=== PATIENT | male | born 1980 | race Caucasian/White ===

== ENCOUNTER 2020-05-22 18:25 | Emergency (ER) | payer BC, SELFPAY ==
[2020-05-22 18:27] VITALS: BP 162/101; PULSE 74; RESP 18; TEMP 36.1; O2SAT 99; BMI 36.1
--- NOTE | 2020-05-22 18:43 | RAD_ITS ---
STUDY: X-RAY - LEFT HAND REASON FOR EXAM: Male, 39 years old. PAIN TO 5TH METACARPAL S/P INJURY x1 WEEK AGO, SWELLING TECHNIQUE: 3 view(s) of the hand. COMPARISON: None. FINDINGS: Normal radiocarpal articulation. Normal distal radioulnar joint. Normal visualized carpal bones. Normal carpal articulations Normal carpometacarpal articulation of the thumb. Normal second through fifth carpometacarpal joints. Acute volarly angulated transverse fracture the midshaft of the fifth metacarpal bone. Normal metacarpophalangeal joint of the thumb. Normal interphalangeal joint of the thumb. Normal proximal and distal phalanges of the thumb. Normal metacarpophalangeal joints of the second through fifth fingers. Normal proximal and distal interphalangeal joints of the second through fifth fingers. Normal phalanges of the second through fifth fingers. The soft tissue structures are unremarkable. RAD/Hand Min 3 Views IMPRESSION: Acute volarly angulated transverse fracture the midshaft of the fifth metacarpal bone. Electronically Signed: Doug Barrow MD at 19:10 EST Tel , Service support ,
--- NOTE | 2020-05-22 18:45 | ED.VIS.UPPEX ---
History of Present Illness Chief Complaint: Upper Extremity Injury Informant: Patient Occurred: Days Narrative: Patient is a 39-year-old male with no significant past medical history presenting with left hand injury. He is right-hand dominant. Patient punched the bed of his truck a week ago. Since then he had pain in the lateral aspect of his left hand with associated swelling. Today while he was at work he was trying to wrestle with steer and fell onto his left hand. Since then the pain has been significantly worse. Patient is intermittently taken ibuprofen for the pain. States it is worse when he tries to supinate his hand or if he applies direct pressure to the lateral aspect of his hand. No associated numbness or tingling. No other complaints at this time. Past Medical History - Allergies and Home Meds Allergies/Adverse Reactions: Allergies Penicillins Allergy (Verified 05/22/20 18:26) Cyndee Primary Care Physician: Wendie Corea DO [STAFF PHYSICIAN] - Past Medical History: None Surgical History: noncontributory Review of Systems General: Denies: Chills, Fever, Sweats Eyes: Denies: Visual changes - bilaterally, Diplopia ENT: Denies: Rhinorrhea, Sore throat Cardiovascular: Denies: Chest pain, Palpitations Respiratory: Denies: Dyspnea, Cough, Dyspnea on exertion Gastrointestinal: Denies: Abdominal pain, Nausea, Vomiting, Diarrhea, Melena, Hematochezia Genitourinary: Denies: Dysuria, Hematuria, Frequency Musculoskeletal: Reports: Swelling, Extremity Pain - Left hand. Denies: Back pain Skin: Denies: Rash, Wounds Neurological: Denies: Headache, Weakness, Numbness Physical Exam Vital Signs/Narrative: Vital Signs Temp Pulse Resp BP Pulse Ox 05/22/20 18:27 97 F L 74 18 162/101 H 99 Inital Vital Signs reviewed: Yes Left Forearm: Negative for: Contusion, Deformity, Edema, Hematoma, Limited ROM Left Wrist: Negative for: Contusion, Deformity, Edema, Hematoma, Limited ROM Left Hand: Contusion, Edema, Limited ROM, - - She has palpation over the fourth and fifth metacarpals. Negative for: Deformity Left Finger: Limited ROM - Decreased ability to fully make a fist with the fourth and fifth fingers, - - No rotational deformity noted.. Negative for: Contusion, Deformity, Edema, Hematoma General: Well nourished, Well developed Head: Normocephalic, Atraumatic Eyes: EOMI ENT: No Trauma, Moist Mucous Membranes Neck: Full ROM Cardiovascular: Regular rate, Regular rhythm, - - 2+ bilateral radial pulses, brisk capillary refill Respiratory: No distress Back: Nontender Skin: Normal color, No rash, Trauma - Ecchymosis over the dorsal aspect of the left lateral hand Neurological: Alert, Oriented x3, Cranial nerves II-XII grossly intact, Normal Strength, Normal Sensation Psychological: Normal affect Diagnostic/Tx/Re-eval Clinical Impression(s) from Imaging Studies Hand X-Ray 05/22/20 18:43 IMPRESSION: Acute volarly angulated transverse fracture the midshaft of the fifth metacarpal bone. Electronically Signed: Doug Barrow MD at 19:10 EST Tel , Service support , - Medical Decision Making Patient evaluated for persistent pain and swelling of his left hand. He struck the bed of his truck a week ago which initially caused the injury. He fell on it today and reinjured it. X-ray shows zahira's fracture of the fifth metacarpal as interpreted by myself and radiologist. Patient placed in an ulnar gutter splint applied by myself and will be discharged home to follow-up with orthopedics. He declined analgesic in the emergency room. Patient is counseled on signs and symptoms requiring return to the emergency room. Patient verbalizes agreement and understand this plan. Patient discharged home in stable and improved condition. Procedures - Upper Extremity Splints Upper Extremity Splint: Orthoglass, Ulnar gutter Splint Fabrication: Fabricated Location: Left ED Disposition - Plan for ED Patient: Disposition: Home or Assisted Living Diagnosis: Fracture of fifth metacarpal bone of left hand Instructions: ED Boxer Fracture Referrals: Wendie Corea DO [STAFF PHYSICIAN] -
== END 2020-05-22 19:34 | disposition home or self-care (01) ==
LOC: ED 19:28
PROVIDERS: Emergency Provider Emergency Medicine
DX: S62.327A Displaced fracture of shaft of fifth metacarpal bone, left hand, initial encounter for closed fracture (principal); W22.09XA Striking against other stationary object, initial encounter; Y93.89 Activity, other specified; Y92.89 Other specified places as the place of occurrence of the external cause; Y99.8 Other external cause status
CPT/HCPCS: 29125; 73130; 99282

== ENCOUNTER 2020-05-26 10:41 | Day surgery (SDC) | payer BC, SELFPAY ==
[2020-05-25 08:33] VITALS: BMI 33.0
--- NOTE | 2020-05-26 08:34 | HP_ITS ---
I have re-examined the patient. There are no clinical changes since date of exam. Intake Vital Signs 05/25/20 Height 5 ft 10 in 05/25/20 Weight: 230 lb 05/25/20 BMI 33.0 Intake Visit Reasons: LT Hand Accompanied by: Self Is patient in pain?: Yes Pain scale (1-10): 3 Allergies Penicillins Allergy (Verified 05/25/20 12:14) Hives Medications NK 05/22/20 [History Confirmed 05/25/20] PFSH Medical History (Updated 05/25/20 @ 08:34 by Yaneli Davis) H/O TB (tuberculosis) (Acute) h/o spinal menigitis (Acute) Surgical History (Updated 05/25/20 @ 08:33 by Yaneli Davis) No history of previous surgery (Acute) Family History (Updated 05/25/20 @ 08:34 by Yaneli Davis) Grandmother Diabetes Hypertension Mother Hypertension Father Hypertension Social History (Updated 05/25/20 @ 12:[address] Wendie Corea, ) household members: significant other, children housing: house Smoking Status: Never smoker alcohol intake: current alcohol intake frequency: holidays/special occasions only what type of physical activity do you participate in: running frequency: 3-4 times per week do you feel safe at home: Yes HPI LT Hand: Surgical H&P: Yes Details: Parts of this documentation were recorded by a scribe, this documentation accurately reflects the service provided and the decisions made by me, Dr. Wendie Corea, 05/25/20 0810. ELLEN CORONA is a 39 year old M here today to establish as a new patient for an ER f/u. Patient states he punched his truck bed. DOI: 05/15/2020. Patient states he felt immediate pain right after. Patient states he fell on his hand one week afterwards when getting his daughter's steer under control and felt immediate pain. DOI of second incident: 05/22/20. Denies previous surgeries, injuries, and physical therapy. Denies taking anything OTC for pain relief. ROS Musc Reports system reviewed and no additional complaints, except as docu, Reports joint pain, Reports joint swelling, Reports numbness, Reports stiffness, Reports tingling Skin/Breast Reports system reviewed and no additional complaints, except as docu, Denies dry skin, Denies redness, Denies lesions, Denies new lesions, Denies non-healing lesions, Denies itching, Denies rash, Denies skin ulcer, Denies sores, Reports unusual bruising, Denies wounds Neuro Yes numbness, Yes tingling Assessment & Plan Problems 1. Fracture of fifth metacarpal bone of left hand S62.307A Plan Personally reviewed patients x-rays of the left hand. Patient educated that he has an acute volarly angulated transverse fracture the midshaft of the fifth metacarpal bone. Patient educated that his treatment options are to be casted today with some molding over the fx site in the office or casting with molding in the OR or he can have this surgically repaired with pins or surgically repaired with a plate. With the casting he will be in an ulnar gutter cast and he will be in this cast for 6 weeks. With the surgery he will be in a splint for 2 weeks then will be able to start ROM. Reviewed the pre-operative plans with the patient. Risks and benefits of the procedure were fully explained, including but not limited to infection, neurovascular injury, continued pain, arthritis, stiffness, need for further surgery, re-injury, DVT, PE, general risks of anesthesia, and loss of limb or life. 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 Follow up 2 weeks post op or sooner if pain, swelling, numbness or associated symptoms, or concerns develop. All questions answered. Patient in agreement of plan. Coding Level of Care Code Off vis,new,level 3 Diagnoses Fracture of fifth metacarpal bone of left hand S62.307A ??Encounter type: initial encounter ??Fracture alignment: displaced ??Fracture type: closed
[2020-05-26 11:09] VITALS: BP 151/93; PULSE 58; RESP 16; TEMP 36.4; O2SAT 99; BMI 35.8
[2020-05-26] MEDS: Lactated Ringers 1,000 ML 100 ML IV ×2 (11:17→13:11)
--- NOTE | 2020-05-26 12:35 | RAD_ITS ---
HISTORY: ORIF 5TH METACARPAL Technique: Intraoperative spot fluoroscopic views of the left hand. 7 images in total. Comparison: X-rays of the left hand are from May 22, 2020 Findings: The left fifth mid diaphysis metacarpal fracture has been improved in alignment with plate and screws. Osseous mineralization, joint spaces, and alignment otherwise appear preserved as imaged. No focal abnormality or radiopaque foreign body is seen in the surrounding soft tissues. RAD/Hand Min 3 Views IMPRESSION: Internal fixation of fifth metacarpal fracture at 0039 Reported and signed by: Ottoniel Farfan MD Electronically Signed: Ottoniel Farfan MD at 0:37 EST Tel , Service support ,
[2020-05-26] MEDS: Cefazolin 2 GM in 0.9% Normal Saline 100 ML IV (13:50)
--- NOTE | 2020-05-26 15:21 | PCM.DC.ORTHO ---
Discharge Diet: No Restrictions - leave dressing/splint intact, do no use left hand/wrist to lift, rom fingers as tolerated, call with concerns, follow up in 2 weeks Discharge Activity: May Not Drive May shower in (days): 1 Ice area for (Minutes): 20 - Every hour while awake. Weight Bearing Status: Weight bearing as tolerated Keep extremity elevated above heart level: Operative Extremity Call your doctor if your incision/area has: Continuous Slow Oozing, Sudden Increased Bleeding, Increased Pain/ Swelling, Increased Redness, Foul Smelling Discharge Call your doctor if you observe: Fever of 101 or Higher, Coldness, Increased Pain, Numbness or Tingling, Change in Color, Calf discomfort Allergies/Adverse Reactions: Allergies Penicillins Allergy (Verified 05/25/20 12:14) Hives Medications to take at Discharge Oxycodone HCl/Acetaminophen [Percocet 5/325] 1 - 2 tab PO Q6H PRN PRN 5 Days #28 tab 05/26/20 The following prescriptions were given: Oxycodone HCl/Acetaminophen [Percocet 5/325] 1 - 2 tab PO Q6H PRN PRN 5 Days #28 tab PRN Reason: Pain Transmission Status: Sent to [facility] Primary Care Physician: Care Physician,No Primary [Primary Care Provider] - Test Results: Test results from this visit will be discussed in further detail at your follow-up appointment, if applicable. Please Follow Up With: Wendie Corea, - [phone]
--- NOTE | 2020-05-26 15:22 | PCM.OPRPT ---
Report of Operation Date of Procedure: 05/26/20 Pre-Operative Diagnosis: left fifht metacarpal fracture -displaced and angulated Post-Operative Diagnosis: same Surgery/Procedure Performed:: orif left fifth metacarpal day habilitation supervisor: Emmanuel Ivan Type of Anesthesia:: General Anesthesiologist: Norman Salgado Fluids Replaced: 500cc lr Description of Procedure: Preoperative note Patient is a 39-year-old male who sustained a injury to his left fifth metacarpal and punched a metal object. Patient was seen in the emergency room and splinted seen in our office yesterday. Discussed options for treatment and ulnar gutter cast with a attempted reduction either in the office or in the operating room pins versus open reduction internal fixation with plate. 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 Risk-benefit and alternative surgery discussed with patient risk include but not limited to blood loss, blood clot, infection, neurovascular, failure procedure, loss of life left limb. Patient is aware like proceed with ORIF left fifth metacarpal. Operative note Patient seen examined preop holding area. Left knee was marked. Patient brought the operating placed supine on the operative table. Signed, anesthesia, antibiotics were administered. Left hand was prepped and draped usual sterile technique with a tourniquet on his upper arm. All bony promises well-padded SCDs placed on his left bilateral lower extremity. We then used fluoroscopy to ascertain the level of the fracture site. We made incision at the interspace between the fifth and fourth metacarpals. Timeout is performed. Then elevate exsanguinated and tourniquet was raised her pressure of 250 torr. Use a 15 blade to cut through the skin again in the fifth and fourth interspace. Dissected down tenotomies to level of the fracture site. We did dissect and move the extensor tendons out of the way and repair and we did protect all neurovascular lectures at all times. We then elevated the periosteum and found the displaced fracture we irrigated and use a bone pick to curette curette any of the loose pieces out. We then properly placed our 5 hole plate off the back table. Placed over the fracture site placed the 2 distal cortical screws first and then had placed initially 2 cortical screws but however did not like the rotational profile we did remove those and placed 2 locking screws distally in the note and also the lag screw at the fracture site. We had good reduction anatomic reduction and cascade was intact at that point. We irrigated the incision with copious amounts of sterile saline. Tourniquet was deflated. Incision was closed with interrupted 3-0 Vicryl we did close that over the periosteum over the plate and then the skin was closed with a 3-0 Vicryl in a running 4 Monocryl. Sterile dressings and a ulnar gutter splint was applied to the left upper extremity. Tourniquet was deflated. Patient tolerated procedure well no complications transferred recovery room in stable condition Synthes 2 oh DCP plate 9 1010 mm cortical screws 9 and 9mm locking screws Postoperative note Nonweightbearing light left upper extremity Pharmacy has prescription Call with increased pain numbness tingling further issues arise Dragon disclaimer Follow-up in 2 weeks Dragon disclaimer This note was generated with ActivePath dictation software. It may contain incorrect words, spelling, and punctuation that were not noted in checking the note before signing.
[2020-05-26] MEDS: Mupirocin Ointment 22gm Tube 1 APPLIC (15:33)
[2020-05-26 15:46] VITALS: BP 151/93; BP 155/91; PULSE 70; RESP 16; TEMP 36.6; O2SAT 95
[2020-05-26 16:00] VITALS: BP 148/95; BP 151/93; PULSE 64; RESP 16; O2SAT 97
[2020-05-26 16:15] VITALS: BP 145/101; BP 151/93; PULSE 71; RESP 16; O2SAT 96
[2020-05-26 16:20] VITALS: BP 145/97; BP 151/93; PULSE 68; RESP 16; TEMP 36.6; O2SAT 98
[2020-05-26] MEDS: Ondansetron 4 MG/2 ML Vial IV (16:50)
[2020-05-26] MEDS: HYDROcodone Bitartrate/Apap 5/325 Tablet PO (16:50)
--- NOTE | 2020-05-26 17:20 | SUR.PHASEII ---
MEDICATED WITH 2 NORCO AT 1655 FOR 5-6/10 LEFT WRIST PAIN OVER THE ULNAR STYLOID PROCESS. PATIENT REPORTS PAIN NOT IMPROVED, WORSE, IN FACT, NOT TOLERABLE. NOTIFIED MARY ALVARENGA, COMPOUND MIXER FOR DR ALCANTARA; JUSTIN INSTRUCTED TO REMOVE FIBERGLASS SPLINT AND EVAL, PAD THE STYLOID PROCESS AND REAPPLY SPLINT. PATIENT REPORTS IMMEDIATE IMPROVEMENT AFTER SPLINT REMOVED. PADDED AREA AND ATTEMPTED TO REAPPLY SPLINT BUT PATIENT COULD NOT TOLERATE THE PRESSURE, DID NOT WANT SPLINT REAPPLIED D/T INCREASED PAIN. THEN STATED, FINE, PUT IT ON, I'LL JUST TAKE IT OFF WHEN I GET HOME. EDUCATED RE: THE NEED FOR SUPPORT OVER SURGICAL SITE, RISK OF REINJURY AND INCREASED PAIN, SWELLING. SIGNIFICANT OTHER, MADISYN, AT BEDSIDE AND AWARE. NOTIFIED JUSTIN RODRIGUEZ THAT PATIENT REFUSED TO HAVE RN SPLINT REAPPLIED, STATING HIS INTENTION NOT TO COMPLY WITH PRESCRIBED THERAPY; JUSTIN ADVISED TO LEAVE SPLINT OFF, PAD AND REWRAP SITE, INSTRUCT PATIENT TO PROTECT AREA CAREFULLY AND CALL THE OFFICE TOMORROW MORNING FOR APPOINTMENT TO REVISE SPLINTING. PATIENT AND S.O. VERBALIZE UNDERSTANDING AND ARE AGREEABLE. PATIENT DBP IN LOW 100'S, STILL PAINFUL, DBP WAS IN 90'S ON ARRIVAL, DR BYRD AWARE AND STATES TO CONTINUE WITH PLAN OF CARE.
[2020-05-26 18:20] VITALS: BP 139/105; BP 151/93; PULSE 75; RESP 16; TEMP 36.2; O2SAT 100
== END 2020-05-26 18:28 | disposition home or self-care (01) ==
LOC: SDC 10:44 → AC 10:45
PROVIDERS: Visit Provider Orthopaedic Surgery
PROC: (CPT 26615; principal; 2020-05-26 12:20)
DX: S62.307A Unspecified fracture of fifth metacarpal bone, left hand, initial encounter for closed fracture (principal); Z20.822 Contact with and (suspected) exposure to COVID-19; W22.09XA Striking against other stationary object, initial encounter; Y93.89 Activity, other specified; Y92.89 Other specified places as the place of occurrence of the external cause; Y99.8 Other external cause status
CPT/HCPCS: 26615; 73130; 76000; 87426; C1713; C9803; J7120; J2405